=== PATIENT | male | born 1950 | race Caucasian/White ===

== ENCOUNTER 2018-02-08 20:26 | Emergency (ER) | payer SELFPAY ==
[~2018-02-08] VITALS: Ht 180.3 cm; Wt 93.9 kg
[2018-02-08] MEDS ORDERED: SODIUM CHLORIDE 0.9% 1,000 ML IV ONE (23:37)
[2018-02-08] MEDS ORDERED: TETRACAINE 0.5% OPHTH DROPS 4ML LEFTEYE ONE (23:45)
[2018-02-09 00:15] LABS: BASOPHILS % 0.4 % (0.0-2.0); EOSINOPHILS % 0.3 % (0.0-5.0); HEMATOCRIT. 43.5 % (42.0-52.0); LYMPHOCYTES % 30.4 % (20.0-50.0); MEAN CORPUSCULAR HEMOGLOBIN 28.7 pg (28.0-32.0); MEAN CORPUSCULAR VOLUME 83.3 fL (80.0-94.0); MEAN PLATELET VOLUME 9.5 fl (7.4-10.4); MONOCYTES % 12.9 % (2.0-8.0); PLATELET 213 x1000/uL (130-400); RED BLOOD CELL COUNT 5.22 mill/uL (4.7-6.1); RED CELL DISTRIBUTION WIDTH 13.7 % (11.6-14.6)
[2018-02-09 00:21] LABS: PARTIAL THROMBOPLASTIN TIME 29.6 sec (23.4-31.0); PROTHROMBIN TIME 10.3 sec (9.1-11.1)
[2018-02-09 00:22] LABS: CHLORIDE 103 mEq/L (98-107)
[2018-02-09 00:28] LABS: LDL CHOLESTEROL 63 mg/dL (5-100)
[2018-02-09 02:20] VITALS: BP 144/73
== END 2018-02-09 02:22 | disposition home or self-care (01) ==
LOC: ER 20:26
DX: H43.392 Other vitreous opacities, left eye (principal); R91.8 Other nonspecific abnormal finding of lung field; E86.0 Dehydration; I10 Essential (primary) hypertension; H40.9 Unspecified glaucoma
CPT/HCPCS: 36415; 70450; 71045; 80053; 83721; 83735; 83880; 84484; 85025; 85610; 85730; 93005; 96360; 99285; J7030